=== PATIENT | male | born 1985 | race Caucasian/White ===

== ENCOUNTER → 2017-03-06 | Outpatient (CLI) | payer BC ==
[2016-01-28 03:30] VITALS: BP 106/69
--- NOTE | 2017-03-06 12:58 | RAD ---
APPROVED REPORT Test Type: Exercise Stress Nurse/Tech: Mara Longoria R.N. Test Indications: dizziness, atypical chest pain Cardiac History: No known cardiac , smoker Medications: See Electronic Medical Record Medical History: See Electronic Medical Record Resting ECG: s. love Resting Heart Rate: 57 bpm Resting Blood Pressure: 109/61mmHg Pretest Chest Pain: No chest pain Nurse/Tech Notes S1S2, lungs sound clear Consent: The procedure was explained to the patient in lay terms. Informed consent was witnessed. Luis Angel eout was entered into [employer]. History and Stress Test performed by Mara Longoria R.N. Stress Symptoms No chest pain or symptoms. POST EXERCISE Reason for Termination: Reached target heart rate Target HR: 160 Max HR: 173 bpm Exercise duration: 11 min. min:sec, 4 Stage Max Blood Pressure: 142/73mmHg Blood Pressure response to exercise: Normal blood pressure response during stress. Chest Pain: No. Arrhythmia: No. ST Change: No. INTERPRETATION Stress EKG Conclusion: Baseline EKG showed sinus rhythm. No ischemic changes at peak stress. No arr hythmias. Imaging Protocol IMAGE PROTOCOL: Rest Tc-99m/stress Tc-99m 1 day Rest: Stress: Viability: Radiopharm.Tc99m TcdjlsftfWk19m Sestamibi [id number] 34mCi Duration 15min. 10min. Img Date 03/06/2017 03/06/2017 Inj-Img [id number]. 60min. Rest Admin Site:IV - Right AntecubitalAdministrator:RT Naga (R)(N) Stress Admin Site: IV - Right AntecubitalAdministrator: RT Naga (R)(N) STRESS DATA End Diast. Vol.98.0mlAv. Heart Rate68.0bpm End Syst. Vol.33.0mlCO Index BSA0.0L/min Myocardial Sjkg480.0gEject. Itrrnrit08.0% Stress Rates Pk. Fill Rate2.74EDV/secLVtime Pk. Fill 255.34msec Pk. Empty Rate3.84ESV/secLVtime Pk. Mhzqo980.14msec 08/13 Pk. Fill1.35EDV/sec Stress Scores Regional WT0.00Summed WT2.00 Regional WM0.00Summed WM7.00 Study quality was good. Left Ventricular size was Normal at Rest and Stress. Lung uptake was Normal. Left Ventricular ejection fraction is 66%. The rest and stress images show normal perfusion, normal contraction and thickening. LV Perf. Quant 17 Seg. SSS0.00 17 Seg. SRS2.00 17 Seg. SDS0.00 Stress Defect Extent (% LAD)0.00Rest Defect Extent (% LAD)0.00Rev. Defect Extent (% LAD)0.00 Stress Defect Extent (% LCX) 0.00Rest Defect Extent (% LCX)8.80Rev. Defect Extent (% LCX)0.00 Stress Defect Extent (% RCA)0.00Rest Defect Extent (% RCA)0.00Rev. Defect Extent (% RCA)0.00 Stress Defect Extent (% JUNE)0.00Rest Defect Extent (% JUNE)1.50Rev. Defect Extent (% JUNE)0.00 Conclusion 1. Treadmill exercise cardioisotope stress test did not show any evidence of ischemia or infarct. 2. Normal left ventricular systolic function with ejection fraction calculated at 66%. 3. Low risk for cardiac events.
--- NOTE | 2017-03-06 13:01 | CARD ---
APPROVED REPORT EXAM: Two-dimensional and M-mode echocardiogram with Doppler and color Doppler. Other Information Quality : GoodHR: 52bpm Rhythm : Bradycardia INDICATION Palpitations Dizziness and Vertigo Fatigue Atypical chest pain RISK FACTORS Chewing tobacco 2D DIMENSIONS RVDd2.3 (2.9-3.5cm)Left Atrium(2D)2.4 (1.6-4.0cm) IVSd0.7 (0.7-1.1cm)Aortic Root(2D)3.0 (2.0-3.7cm) LVDd4.1 (3.9-5.9cm)LVOT Diameter2.3 (1.8-2.4cm) PWd0.7 (0.7-1.1cm)LVDs2.9 (2.5-4.0cm) FS (%) 28.9 %SV41.6 ml LVEF(%)56.0 (>50%) Aortic Valve AoV Peak Milad.105.2cm/sAoV VTI23.1cm AO Peak GR.4.4mmHgLVOT Peak Milad.78.6cm/s AO Mean GR.2mmHgAVA (VMAX)3.00cm2 Mitral Valve MV E Aqqqhqrg71.2cm/sMV E Peak Gr.4mmHg MV DECEL [id number] A [place]07.5cm/s MV E Mean Gr.1mmHgE/A Ratio2.9 MV A Epfrxuci66ii Pulmonary Valve PV Peak Vuzreqhc28.3cm/s Tricuspid Valve TR P. Ndvwhkoz449ck/sTR Peak Gr.20mmHg Pulmonary Vein S1 Eukuyxwq62.5cm/sD2 Iotfjsam09.8cm/s PVa iobavygj76lchd LEFT VENTRICLE The left ventricle is normal size. There is normal left ventricular wall thickness. The left ventricu lar systolic function is normal. The Ejection Fraction is 55%. There is normal LV segmental wall brisa on. The left ventricular diastolic function and filling is normal for age. RIGHT VENTRICLE The right ventricle is normal size. There is normal right ventricular wall thickness. The right ventr icular systolic function is normal. ATRIA The left atrium size is normal. The right atrium size is normal. The interatrial septum is intact wit h no evidence for an atrial septal defect or patent foramen ovale as noted on 2-D or Doppler imaging. AORTIC VALVE The aortic valve is normal in structure and function. The aortic valve is trileaflet. Doppler and Col or Flow revealed no significant aortic regurgitation. There is no significant aortic valvular stenosi s. MITRAL VALVE The mitral valve is normal in structure and function. There is no evidence of mitral valve prolapse. There is no mitral valve stenosis. Doppler and Color Flow revealed no mitral valve regurgitation note d. TRICUSPID VALVE Doppler and Color Flow revealed mild tricuspid regurgitation. The pulmonary artery systolic pressure is estimated at 23 mmHg. There is no pulmonary hypertension. PULMONIC VALVE The pulmonary valve is not well visualized but appears to opens well. Doppler and Color Flow revealed mild pulmonic valvular regurgitation. There is no pulmonic valvular stenosis by spectral Doppler. GREAT VESSELS The aortic root is normal in size. The ascending aorta is normal in size. The pulmonary artery is nor mal. The IVC is normal in size and collapses >50% with inspiration. PERICARDIAL EFFUSION There is no evidence of significant pericardial effusion. Critical Notification Critical Value: No <Conclusion> The left ventricular systolic function is normal. The Ejection Fraction is 55%. There is normal LV segmental wall motion. Mild tricuspid regurgitation. The pulmonary artery systolic pressure is estimated at 23 mmHg. There is no evidence of significant pericardial effusion.
== END | disposition home or self-care (01) ==
LOC: NM 07:55
PROVIDERS: ATTEND Physician Assistant Medical
DX: I07.1 Rheumatic tricuspid insufficiency (principal); R42 Dizziness and giddiness; R07.89 Other chest pain; R53.83 Other fatigue
CPT/HCPCS: 78452; 93017; 93306; 96374; 96376; A9500

== ENCOUNTER 2017-12-27 21:42 | Emergency (ER) | payer BC ==
[2017-12-27 22:12] LABS: ADD MAN DIFF? NO
[2017-12-27 22:14] LABS: BASO # 0.1 x10^3/uL (0.0-0.2); BASO % 1 % (0-3); EOS # 0.1 x10^3/uL (0.0-0.7); EOS % 2 % (0-3); HEMATOCRIT 43.8 % (39.0-53.0); HEMOGLOBIN 15.6 g/dL (13.0-17.5); LYMPH # 2.7 x10^3/uL (1.0-4.8); LYMPH % 39 % (24-48); MEAN CORPUSCULAR HEMOGLOBIN 33 pg (25-35); MEAN CORPUSCULAR HGB CONC 36 g/dL (31-37); MEAN CORPUSCULAR VOLUME 92 fL (79-100); MONO # 0.6 x10^3/uL (0.0-1.1); MONO % 8 % (0-9); NEUT # 3.5 x10^3uL (1.8-7.7); NEUT % 50 % (31-73); PLATELET COUNT 152 x10^3/uL (140-400); RED BLOOD COUNT 4.76 x10^6/uL (4.30-5.70); RED CELL DISTRIBUTION WIDTH 13.4 % (11.5-14.5); WHITE BLOOD COUNT 6.9 x10^3/uL (4.0-11.0)
[2017-12-27] MEDS: IV NORMAL SALINE 1000ML BAG 1,000 ML IV (22:15)
[2017-12-27] MEDS: ASPIRIN 325 MG TABLET PO (22:15)
[2017-12-27 22:26] LABS: ANION GAP 6 (6-14); BLOOD UREA NITROGEN 12 mg/dL (8-26); BUN/CREATININE RATIO 11 (6-20); CALCIUM 8.5 mg/dL (8.5-10.1); CARBON DIOXIDE 31 mmol/L (21-32); CHLORIDE 104 mmol/L (98-107); CREATININE 1.1 mg/dL (0.7-1.3); GFR 77.6; GLUCOSE 101 mg/dL (70-99); POTASSIUM 3.8 mmol/L (3.5-5.1); SODIUM 141 mmol/L (136-145)
[2017-12-27 22:31] LABS: ALBUMIN 3.8 g/dL (3.4-5.0); ALBUMIN/GLOBULIN RATIO 1.1 (1.0-1.7); ALK PHOS 79 U/L (46-116); ALT (SGPT) 19 U/L (16-63); AST (SGOT) 20 U/L (15-37); CREATINE KINASE 110 U/L (39-308); MAGNESIUM 1.8 mg/dL (1.8-2.4); TOTAL BILIRUBIN 0.5 mg/dL (0.2-1.0); TOTAL PROTEIN 7.4 g/dL (6.4-8.2)
[2017-12-27 22:33] LABS: TROPONINI < 0.017 ng/mL (0.000-0.055)
[2017-12-27 22:37] LABS: BILIRUBIN,URINE NEGATIVE (NEG); CLARITY,URINE CLEAR; COLOR,URINE YELLOW; GLUCOSE,URINE NEGATIVE (NEG); INR 1.2 (0.8-1.1); NITRITE,URINE NEGATIVE (NEG); PROTEIN,URINE NEGATIVE (NEG-TRACE); PROTHROMBIN TIME PATIENT 15.1 SEC (11.7-14.0); UROBILINOGEN,URINE 0.2 mg/dL (0.2 mg/dL)
[2017-12-27 22:39] LABS: NT-PRO BNP 14 pg/mL (0-124); THYROID STIM HORMONE (TSH) 2.983 uIU/mL (0.358-3.74)
[2017-12-27 22:39] LABS: CKMB INDEX 0.8 % (0-4); CKMB MASS 0.9 ng/mL (0.0-3.6); CREATINE KINASE 112 U/L (39-308)
[2017-12-27 22:44] LABS: BARBITURATES NEG (NEG); BENZODIAZEPINES NEG (NEG); CANNABINOIDS NEG (NEG); COCAINE NEG (NEG); METHADONE NEG (NEG); OPIATES NEG (NEG); PHENCYCLIDINE NEG (NEG)
[2017-12-27 22:45] LABS: AMPHETAMINE/METHAMPHETAMINE NEG (NEG); ETHANOL, URINE NEG (NEG)
[2017-12-27 22:48] LABS: BACTERIA,URINE 0 /HPF (0-FEW); RBC,URINE 0 /HPF (0-2); WBC,URINE 0 /HPF (0-4)
== END 2017-12-28 00:02 | disposition home or self-care (01) ==
LOC: ER 12-28 00:02
DX: F41.9 Anxiety disorder, unspecified (principal); F17.220 Nicotine dependence, chewing tobacco, uncomplicated; Z79.82 Long term (current) use of aspirin
CPT/HCPCS: 36415; 71045; 80053; 80307; 81001; 82550; 82553; 83735; 83880; 84443; 84484; 85025; 85610; 93005; 99285-25

== ENCOUNTER 2018-10-04 14:26 | Emergency (ER) | payer BC ==
[~2018-10-04] VITALS: Ht 167.6 cm; Wt 59.0 kg
[2018-10-04 15:22] VITALS: BP 108/78
[2018-10-04] MEDS ORDERED: METH4TAB2 PO (15:44)
[2018-10-04] MEDS ORDERED: AZIT250T6 PO (15:45)
--- NOTE | 2018-10-04 15:45 | PHYS DOC ---
Past Medical History Past Medical History: Anxiety Past Surgical History: Appendectomy Alcohol Use: None Drug Use: None Adult General Chief Complaint Chief Complaint: COUGH HPI HPI Patient is a 33 year old male who presents with right ear muffled, cough, congestion. Patient states he was diagnosed as ago with influenza A. Patient states he refused Tamiflu so the doctor that diagnosed him with the flu gave him a pressure for an antibiotic and stated to get it filled if he was not getting better after week. Patient did not get the antibiotic filled. Review of Systems Review of Systems Constitutional: Denies fever or chills [] Eyes: Denies change in visual acuity, redness, or eye pain [] HENT: nasal congestion or denies sore throat. ears muffled. t [] Respiratory: cough or denies shortness of breath [] Cardiovascular: No additional information not addressed in HPI [] GI: Denies abdominal pain, nausea, vomiting, bloody stools or diarrhea [] : Denies dysuria or hematuria [] Musculoskeletal: Denies back pain or joint pain [] Integument: Denies rash or skin lesions [] Neurologic: Denies headache, focal weakness or sensory changes [] Endocrine: Denies polyuria or polydipsia [] All other systems were reviewed and found to be within normal limits, except as documented in this note. Allergies Allergies Allergies Coded Allergies Type Severity Reaction Last Updated Verified No Known Drug Allergies 01/05/15 No Physical Exam Physical Exam Constitutional: Well developed, well nourished, no acute distress, non-toxic appearance. [] HENT: Normocephalic, atraumatic, bilateral external ears normal, oropharynx moist, no oral exudates, nose normal. Throat red but no exudates or swelling. Bilateral tympanic membranes boggy. [] Eyes: PERRLA, EOMI, conjunctiva normal, no discharge. [] Neck: Normal range of motion, no tenderness, supple, no stridor. [] Cardiovascular:Heart rate regular rhythm, no murmur [] Lungs & Thorax: Bilateral breath sounds clear to auscultation [] Abdomen: Bowel sounds normal, soft, no tenderness, no masses, no pulsatile masses. [] Skin: Warm, dry, no erythema, no rash. [] Back: No tenderness, no CVA tenderness. [] Extremities: No tenderness, no cyanosis, no clubbing, ROM intact, no edema. [] Neurologic: Alert and oriented X 3, normal motor function, normal sensory function, no focal deficits noted. [] Psychologic: Affect normal, judgement normal, mood normal. [] Current Patient Data Vital Signs Vital Signs Date Time Temp Pulse Resp B/P (MAP) Pulse Ox O2 Delivery O2 Flow Rate FiO2 10/04/18 15:22 98.0 74 16 108/78 (88) Room Air 98.0 EKG EKG [] Radiology/Procedures Radiology/Procedures [] Course & Med Decision Making Course & Med Decision Making Patient is a 33 year old male who presents with right ear muffled, cough, congestion. Patient states he was diagnosed as ago with influenza A. Patient states he refused Tamiflu so the doctor that diagnosed him with the flu gave him a pressure for an antibiotic and stated to get it filled if he was not getting better after week. Patient did not get the antibiotic filled. Bilateral ears or boggy in color. Lungs are clear to auscultation all lobes. Patient does have nasal congestion that is yellow in color. Patient does have postnasal drip. Throat is reddened but there is no exudates or swelling. Heart rate regular. Vital signs within normal limits. Patient is offered a antibiotic again or Tamiflu and patient is refusing both again. Patient is told that I can give him a steroid Dosepak that might help his symptoms he can try taking over- the-counter medications. Patient agrees to this and is to follow-up with a primary care provider. Patient is still given a antibiotic prescription is told that he should get it filled. Skin pink warm and dry. Mucous members are moist. Vital Signs are within normal limits. Afebrile. Dragon Disclaimer Dragon Disclaimer This electronic medical record was generated, in whole or in part, using a voice recognition dictation system. Departure Departure Impression: Primary Impression: Cough Additional Impressions: Ear pain Nasal congestion Disposition: 01 HOME, SELF-CARE Condition: STABLE Referrals: NO PCP (PCP) Patient Instructions: Cough, Adult, General Headache Without Cause Additional Instructions: FOLLOW UP WITH PRIMARY CARE PROVIDER. TAKE MEDICATIONS PRESCRIBED. Scripts Azithromycin (AZITHROMYCIN TABLET) 250 Mg Tablet 1 PKG PO UD, #6 TAB Prov: VINCENTBRADFavian Paige [employer] 10/04/18 Methylprednisolone (MEDROL) 4 Mg Tab.ds.pk 1 PKG PO UD, #1 PKG Prov: JOSIE KAUR APRN 10/04/18 Problem Qualifiers Additional Impressions: Ear pain Laterality: right Qualified Codes: H92.01 - Otalgia, right ear JOSIE KAUR [employer] Oct 04, 2018 15:45
== END 2018-10-04 16:09 | disposition home or self-care (01) ==
LOC: ER 14:26
DX: H92.01 Otalgia, right ear (principal); R05 Cough; R09.81 Nasal congestion; F41.9 Anxiety disorder, unspecified; Z90.89 Acquired absence of other organs
CPT/HCPCS: 99283

== ENCOUNTER 2019-02-12 00:29 | Emergency (ER) | payer BC ==
[~2019-02-12] VITALS: Ht 167.6 cm; Wt 59.0 kg
[~2019-02-12 00:29] MED LIST: AZIT250T6 PO; METH4TAB2 PO
[2019-02-12] MEDS ORDERED: ASPIRIN CHEWABLE 81 MG TABLET. PO ONE (01:00)
[2019-02-12 01:21] LABS: BASO # 0.1 x10^3/uL (0.0-0.2); BASO % 1 % (0-3); EOS # 0.2 x10^3/uL (0.0-0.7); EOS % 2 % (0-3); HEMATOCRIT 46.3 % (39.0-53.0); LYMPH # 2.4 x10^3/uL (1.0-4.8); LYMPH % 31 % (24-48); MEAN CORPUSCULAR HEMOGLOBIN 32 pg (25-35); MEAN CORPUSCULAR HGB CONC 35 g/dL (31-37); MEAN CORPUSCULAR VOLUME 92 fL (79-100); MONO # 0.6 x10^3/uL (0.0-1.1); MONO % 8 % (0-9); NEUT # 4.3 x10^3uL (1.8-7.7); NEUT % 58 % (31-73); PLATELET COUNT 157 x10^3/uL (140-400); RED BLOOD COUNT 5.04 x10^6/uL (4.30-5.70); RED CELL DISTRIBUTION WIDTH 13.2 % (11.5-14.5); WHITE BLOOD COUNT 7.5 x10^3/uL (4.0-11.0)
[2019-02-12 01:27] LABS: CALCIUM 9.3 mg/dL (8.5-10.1); CREATININE 0.9 mg/dL (0.7-1.3); GFR 97.2; POTASSIUM 3.5 mmol/L (3.5-5.1)
[2019-02-12 01:33] LABS: ALBUMIN/GLOBULIN RATIO 1.1 (1.0-1.7); TOTAL BILIRUBIN 0.5 mg/dL (0.2-1.0); TOTAL PROTEIN 7.5 g/dL (6.4-8.2)
[2019-02-12 01:36] VITALS: BP 110/69
--- NOTE | 2019-02-12 03:19 | PHYS DOC ---
Past Medical History Past Medical History: Anxiety Past Surgical History: Appendectomy Alcohol Use: None Drug Use: None Adult General Chief Complaint Chief Complaint: CHEST PAIN HPI HPI Patient is a 33 year old male presented chief complaint of multiple complaints primary complaint is that of some chest discomfort, feels sharp or dull as well in the center of the left chest he also feels some pain in his right neck he says his left forearm also hurts he says he can look down and see his heart pulsing through his skin of his left arm he is worried about that in addition he has bilateral leg pain feels like cramping. Review of Systems Review of Systems Constitutional: Denies fever or chills [] Eyes: Denies change in visual acuity, redness, or eye pain [] HENT: Denies nasal congestion or sore throat [] Respiratory: Denies cough or shortness of breath [] Cardiovascular: No additional information not addressed in HPI [] GI: Denies abdominal pain, nausea, vomiting, bloody stools or diarrhea [] : Denies dysuria or hematuria [] Musculoskeletal: Denies back pain or joint pain [] All other systems were reviewed and found to be within normal limits, except as documented in this note. Current Medications Current Medications Current Medications Medications (Trade) Dose Ordered Sig/Андрей Start Time Stop Time Status Last Admin Dose Admin Aspirin (Children'S Aspirin) 324 mg 1X ONCE 02/12/19 01:00 02/12/19 01:01 DC 02/12/19 01:07 324 MG Allergies Allergies Allergies Coded Allergies Type Severity Reaction Last Updated Verified No Known Drug Allergies 01/05/15 No Physical Exam Physical Exam Constitutional: Well developed, well nourished, no acute distress, non-toxic appearance. [] HENT: Normocephalic, atraumatic, bilateral external ears normal, oropharynx moist, no oral exudates, nose normal. [] Eyes: PERRLA, EOMI, conjunctiva normal, no discharge. [] Neck: Normal range of motion, no tenderness, supple, no stridor. [] Cardiovascular:Heart rate regular rhythm, no murmur [] Lungs & Thorax: Bilateral breath sounds clear to auscultation [] Abdomen: Bowel sounds normal, soft, no tenderness, no masses, no pulsatile masses. [] Skin: Warm, dry, no erythema, no rash. [] Back: No tenderness, no CVA tenderness. [] Extremities: No tenderness, no cyanosis, no clubbing, ROM intact, no edema. [] Neurologic: Alert and oriented X 3, normal motor function, normal sensory function, no focal deficits noted. [] Psychologic: Affect normal, judgement normal, mood normal. [] Current Patient Data Vital Signs Vital Signs Date Time Temp Pulse Resp B/P (MAP) Pulse Ox O2 Delivery O2 Flow Rate FiO2 02/12/19 01:36 50 14 110/69 (83) 97 Room Air Lab Values Laboratory Tests Test 02/12/19 01:05 White Blood Count 7.5 x10^3/uL (4.0-11.0) Red Blood Count 5.04 x10^6/uL (4.30-5.70) Hemoglobin 16.0 g/dL (13.0-17.5) Hematocrit 46.3 % (39.0-53.0) Mean Corpuscular Volume 92 fL (79-100) Mean Corpuscular Hemoglobin 32 pg (25-35) Mean Corpuscular Hemoglobin Concent 35 g/dL (31-37) Red Cell Distribution Width 13.2 % (11.5-14.5) Platelet Count 157 x10^3/uL (140-400) Neutrophils (%) (Auto) 58 % (31-73) Lymphocytes (%) (Auto) 31 % (24-48) Monocytes (%) (Auto) 8 % (0-9) Eosinophils (%) (Auto) 2 % (0-3) Basophils (%) (Auto) 1 % (0-3) Neutrophils # (Auto) 4.3 x10^3uL (1.8-7.7) Lymphocytes # (Auto) 2.4 x10^3/uL (1.0-4.8) Monocytes # (Auto) 0.6 x10^3/uL (0.0-1.1) Eosinophils # (Auto) 0.2 x10^3/uL (0.0-0.7) Basophils # (Auto) 0.1 x10^3/uL (0.0-0.2) Sodium Level 141 mmol/L (136-145) Potassium Level 3.5 mmol/L (3.5-5.1) Chloride Level 104 mmol/L (98-107) Carbon Dioxide Level 30 mmol/L (21-32) Anion Gap 7 (6-14) Blood Urea Nitrogen 11 mg/dL (8-26) Creatinine 0.9 mg/dL (0.7-1.3) Estimated GFR (Cockcroft-Gault) 97.2 BUN/Creatinine Ratio 12 (6-20) Glucose Level 94 mg/dL (70-99) Calcium Level 9.3 mg/dL (8.5-10.1) Total Bilirubin 0.5 mg/dL (0.2-1.0) Aspartate Amino Transferase (AST) 20 U/L (15-37) Alanine Aminotransferase (ALT) 20 U/L (16-63) Alkaline Phosphatase 68 U/L (46-116) Troponin I Quantitative < 0.017 ng/mL (0.000-0.055) Total Protein 7.5 g/dL (6.4-8.2) Albumin 4.0 g/dL (3.4-5.0) Albumin/Globulin Ratio 1.1 (1.0-1.7) Laboratory Tests 02/12/19 01:05 Laboratory Tests 02/12/19 01:05 EKG EKG EKG shows a normal sinus rhythm rate of 59 incomplete right bundle-branch block but this could be lead placement otherwise no STEMI no ST elevation was identified[] Radiology/Procedures Radiology/Procedures [] Impressions: Chest x-ray my read negative acute Course & Med Decision Making Course & Med Decision Making Pertinent Labs and Imaging studies reviewed. (See chart for details) []33-year-old male with history of anxiety multiple previous ER presentations also history of atypical chest pain in the past presenting with some sort of atypical sounding chest pain with a negative troponin essentially normal EKG and multiple other complaints of some neck pain some pulsating feeling of his left arm he is concerned that he can see his heart beating through his forearm despite my objective evidence of a normal forearm examination In total I think the patient is suffering from anxiety I reassured them as best I could his vital signs are normal think is stable for discharge Dragon Disclaimer Dragon Disclaimer This electronic medical record was generated, in whole or in part, using a voice recognition dictation system. Departure Departure Impression: Primary Impression: Nonspecific chest pain Disposition: HOME, SELF-CARE Condition: STABLE Referrals: NO PCP (PCP) Patient Instructions: Chest Pain (Nonspecific)-Brief TOSIN CHARLES MD Feb 12, 2019 03:19
--- NOTE | 2019-02-12 04:23 | RAD ---
EXAM: AP View of the chest DATE: 02/12/2019 12:40 AM INDICATION: Chest pain COMPARISON: No Prior FINDINGS: The heart is not enlarged. Mediastinal and hilar contours are normal. No focal parenchymal airspace opacity. No pleural effusion or pneumothorax. IMPRESSION: 1. No radiographic evidence for acute cardiopulmonary process. Electronically signed by: Kevyn Peñaloza MD (02/12/2019 4:20 AM) [facility]
--- NOTE | 2019-02-12 07:35 | EKG ---
[facility] [address] [place] [address] Test Date: 2019-02-12 Test Time: 00:40:29 Pat Name: MIKA SANDHU Department: Room: Gender: M [employer] Manager: DOMO : 1985 Requested By: TOSIN CHARLES Order Number: [id number] Reading MD: Measurements Intervals [place] Rate: 59 P: 64 TN: 138 QRS: 79 QRSD: 98 T: 55 QT: 350 QTc: 350 Interpretive Statements SINUS RHYTHM INCOMPLETE RIGHT BUNDLE BRANCH BLOCK OTHERWISE NORMAL ECG RI6.01 No previous ECG available for comparison
== END 2019-02-12 01:49 | disposition home or self-care (01) ==
LOC: ER 00:29
DX: R07.89 Other chest pain (principal); F41.9 Anxiety disorder, unspecified; M79.604 Pain in right leg; M79.605 Pain in left leg; Z90.89 Acquired absence of other organs
CPT/HCPCS: 36415; 71045; 80053; 84484; 85025; 93005; 99285-25

== ENCOUNTER 2019-04-24 22:32 | Emergency (ER) | payer BC ==
[~2019-04-24] VITALS: Ht 167.6 cm; Wt 59.0 kg
[2019-04-24 23:02] LABS: BILIRUBIN,URINE NEGATIVE (NEG); CLARITY,URINE CLEAR; COLOR,URINE YELLOW; NITRITE,URINE NEGATIVE (NEG); PH,URINE 6.5; PROTEIN,URINE NEGATIVE (NEG-TRACE); UROBILINOGEN,URINE 0.2 mg/dL (0.2 mg/dL)
[2019-04-24 23:02] LABS: BASO # 0.1 x10^3/uL (0.0-0.2); BASO % 1 % (0-3); EOS # 0.2 x10^3/uL (0.0-0.7); EOS % 4 % (0-3); HEMATOCRIT 44.1 % (39.0-53.0); HEMOGLOBIN 15.5 g/dL (13.0-17.5); LYMPH # 2.2 x10^3/uL (1.0-4.8); LYMPH % 39 % (24-48); MEAN CORPUSCULAR HEMOGLOBIN 33 pg (25-35); MEAN CORPUSCULAR HGB CONC 35 g/dL (31-37); MEAN CORPUSCULAR VOLUME 92 fL (79-100); MONO # 0.5 x10^3/uL (0.0-1.1); MONO % 10 % (0-9); NEUT # 2.6 x10^3/uL (1.8-7.7); NEUT % 46 % (31-73); PLATELET COUNT 167 x10^3/uL (140-400); RED BLOOD COUNT 4.77 x10^6/uL (4.30-5.70); RED CELL DISTRIBUTION WIDTH 13.2 % (11.5-14.5); WHITE BLOOD COUNT 5.5 x10^3/uL (4.0-11.0)
[2019-04-24 23:08] LABS: BARBITURATES NEG (NEG); BENZODIAZEPINES NEG (NEG); CANNABINOIDS NEG (NEG); COCAINE NEG (NEG); METHADONE NEG (NEG); OPIATES NEG (NEG); PHENCYCLIDINE NEG (NEG)
[2019-04-24 23:09] LABS: AMPHETAMINE/METHAMPHETAMINE NEG (NEG)
[2019-04-24 23:14] LABS: BACTERIA,URINE 0 /HPF (0-FEW); RBC,URINE OCC /HPF (0-2); WBC,URINE OCC /HPF (0-4)
[2019-04-24 23:15] LABS: AMORPHOUS SEDIMENT,UR PRESENT /HPF; SQUAMOUS EPITHELIAL CELL,UR OCC /LPF
[2019-04-24 23:19] LABS: CALCIUM 8.7 mg/dL (8.5-10.1); CREATININE 0.9 mg/dL (0.7-1.3); GFR 97.2; POTASSIUM 3.7 mmol/L (3.5-5.1)
[2019-04-24 23:23] LABS: ALBUMIN 3.7 g/dL (3.4-5.0); MAGNESIUM 1.9 mg/dL (1.8-2.4); TOTAL BILIRUBIN 0.6 mg/dL (0.2-1.0); TOTAL PROTEIN 7.4 g/dL (6.4-8.2)
[2019-04-24 23:30] LABS: CREATINE KINASE 71 U/L (39-308)
[2019-04-24] MEDS ORDERED: ASPIRIN 325 MG TABLET PO ONE (23:30)
--- NOTE | 2019-04-24 23:43 | RAD ---
Single view chest dated 04/24/2019: Comparison made to 02/12/2019 Clinical Indication: Chest pain. Findings: Single upright portable exam of the chest was performed. Heart size and mediastinal contours are within normal limits given technique. The lungs are clear without evidence of focal consolidation. Vascular interstitium is within normal limits. Impression:: No acute radiographic abnormality. Electronically signed by: Michael Hauser MD (04/24/2019 11:40 PM) [facility]
[2019-04-25 00:25] VITALS: BP 100/62
--- NOTE | 2019-04-25 00:48 | PHYS DOC ---
Past Medical History Past Medical History: Anxiety (KAREN MASTERSON APRN) Past Surgical History: No Surgical History, Appendectomy (KAREN MASTERSON APRN) Additional Information: CHEWS TOBACCO Alcohol Use: None Drug Use: None (KAREN MASTERSON APRN) Attending Signature I have participated in the care of this patient and I have reviewed and agree with all pertinent clinical information above including history, exam, and recommendations. (MARIE MEDEIROS MD) Adult General Chief Complaint Chief Complaint: CHEST PAIN-CARDIAC NATURE HPI HPI Patient is a 33 year old male with history of anxiety who presents to the ED today complaining of 6 out of 10 left-sided chest pain intermittently for 2 weeks. Patient states he was seen in the ED for this pain, had a workup which was negative and was sent home. He states has continued to have the pain. He is also complaining of numbness throughout his entire left side from the head to the toes. He states the numbness has been going on for 2 weeks. Patient denies any exacerbating or relieving factors to his chest pain. He states the pain radiates to the left thumb. (KAREN MASTERSON APRN) Review of Systems Review of Systems Constitutional: Denies fever or chills [] Eyes: Denies change in visual acuity, redness, or eye pain [] HENT: Denies nasal congestion or sore throat [] Respiratory: Denies cough or shortness of breath [] Cardiovascular: Reports left-sided chest pain GI: Denies abdominal pain, nausea, vomiting, bloody stools or diarrhea [] : Denies dysuria or hematuria [] Musculoskeletal: Denies back pain or joint pain [] Integument: Denies rash or skin lesions [] Neurologic: Reports numbness to the entire left side. Denies headache, focal weakness or sensory changes [] All other systems were reviewed and found to be within normal limits, except as documented in this note. (KAREN MASTERSON APRN) Current Medications Current Medications Current Medications Medications (Trade) Dose Ordered Sig/Андерй Start Time Stop Time Status Last Admin Dose Admin Aspirin (Shoshana Aspirin) 325 mg 1X ONCE 04/24/19 23:30 04/24/19 23:31 Cancel (MARIE MEDEIROS MD) Allergies Allergies Allergies Coded Allergies Type Severity Reaction Last Updated Verified No Known Drug Allergies 01/05/15 No (MARIE MEDEIROS MD) Physical Exam Physical Exam Constitutional: Well developed, well nourished, no acute distress, non-toxic appearance. [] HENT: Normocephalic, atraumatic, bilateral external ears normal, oropharynx moist, no oral exudates, nose normal. [] Eyes: PERRLA, EOMI, conjunctiva normal, no discharge. [] Neck: Normal range of motion, no tenderness, supple, no stridor. [] Cardiovascular:Heart rate regular rhythm, no murmur [] Lungs & Thorax: Bilateral breath sounds clear to auscultation [] Abdomen: Bowel sounds normal, soft, no tenderness, no masses, no pulsatile masses. [] Skin: Warm, dry, no erythema, no rash. [] Back: No tenderness, no CVA tenderness. [] Extremities: No tenderness, no cyanosis, no clubbing, ROM intact, no edema. [] Neurologic: Alert and oriented X 3, normal motor function, normal sensory function, no focal deficits noted. [] Psychologic: Affect normal, judgement normal, mood normal. [] (KAREN MASTERSON APRN) Current Patient Data Vital Signs Vital Signs Date Time Temp Pulse Resp B/P (MAP) Pulse Ox O2 Delivery O2 Flow Rate FiO2 04/25/19 00:25 52 18 100/62 (75) 97 Room Air 04/24/19 22:40 98.1 98.1 (MARIE MEDEIROS MD) Lab Values Laboratory Tests Test 04/24/19 22:39 04/24/19 22:50 Urine Collection Type Unknown Urine Color Yellow Urine Clarity Clear Urine pH 6.5 Urine Specific [place] 1.020 Urine Protein Negative mg/dL (NEG-TRACE) Urine Glucose (UA) Negative mg/dL (NEG) Urine Ketones (Stick) Negative mg/dL (NEG) Urine Blood Negative (NEG) Urine Nitrite Negative (NEG) Urine Bilirubin Negative (NEG) Urine Urobilinogen Dipstick 0.2 mg/dL (0.2 mg/dL) Urine Leukocyte Esterase Negative (NEG) Urine RBC Occ /HPF (0-2) Urine WBC Occ /HPF (0-4) Urine Squamous Epithelial Cells Occ /LPF Urine Amorphous Sediment Present /HPF Urine Bacteria 0 /HPF (0-FEW) Urine Mucus Marked /LPF Urine Opiates Screen Neg (NEG) Urine Methadone Screen Neg (NEG) Urine Barbiturates Neg (NEG) Urine Phencyclidine Screen Neg (NEG) Urine Amphetamine/Methamphetamine Neg (NEG) Urine Benzodiazepines Screen Neg (NEG) Urine Cocaine Screen Neg (NEG) Urine Cannabinoids Screen Neg (NEG) Urine Ethyl Alcohol Neg (NEG) White Blood Count 5.5 x10^3/uL (4.0-11.0) Red Blood Count 4.77 x10^6/uL (4.30-5.70) Hemoglobin 15.5 g/dL (13.0-17.5) Hematocrit 44.1 % (39.0-53.0) Mean Corpuscular Volume 92 fL (79-100) Mean Corpuscular Hemoglobin 33 pg (25-35) Mean Corpuscular Hemoglobin Concent 35 g/dL (31-37) Red Cell Distribution Width 13.2 % (11.5-14.5) Platelet Count 167 x10^3/uL (140-400) Neutrophils (%) (Auto) 46 % (31-73) Lymphocytes (%) (Auto) 39 % (24-48) Monocytes (%) (Auto) 10 % (0-9) H Eosinophils (%) (Auto) 4 % (0-3) H Basophils (%) (Auto) 1 % (0-3) Neutrophils # (Auto) 2.6 x10^3/uL (1.8-7.7) Lymphocytes # (Auto) 2.2 x10^3/uL (1.0-4.8) Monocytes # (Auto) 0.5 x10^3/uL (0.0-1.1) Eosinophils # (Auto) 0.2 x10^3/uL (0.0-0.7) Basophils # (Auto) 0.1 x10^3/uL (0.0-0.2) Sodium Level 144 mmol/L (136-145) Potassium Level 3.7 mmol/L (3.5-5.1) Chloride Level 105 mmol/L (98-107) Carbon Dioxide Level 33 mmol/L (21-32) H Anion Gap 6 (6-14) Blood Urea Nitrogen 9 mg/dL (8-26) Creatinine 0.9 mg/dL (0.7-1.3) Estimated GFR (Cockcroft-Gault) 97.2 BUN/Creatinine Ratio 10 (6-20) Glucose Level 107 mg/dL (70-99) H Calcium Level 8.7 mg/dL (8.5-10.1) Magnesium Level 1.9 mg/dL (1.8-2.4) Total Bilirubin 0.6 mg/dL (0.2-1.0) Aspartate Amino Transferase (AST) 17 U/L (15-37) Alanine Aminotransferase (ALT) 15 U/L (16-63) L Alkaline Phosphatase 70 U/L (46-116) Creatine Kinase 71 U/L (39-308) Creatine Kinase MB (Mass) 0.6 ng/mL (0.0-3.6) Creatine Kinase MB Relative Index % (0-4) Troponin I Quantitative < 0.017 ng/mL (0.000-0.055) YL-Ncf-F-Type Natriuretic Peptide 42 pg/mL (0-124) Total Protein 7.4 g/dL (6.4-8.2) Albumin 3.7 g/dL (3.4-5.0) Albumin/Globulin Ratio 1.0 (1.0-1.7) Thyroid Stimulating Hormone (TSH) 1.794 uIU/mL (0.358-3.74) Laboratory Tests 04/24/19 22:50 Laboratory Tests 04/24/19 22:50 (MARIE MEDEIROS MD) EKG EKG [address] Medeiros sinus rhythm HR 66 no STEMI[] (KAREN MASTERSON APRN) Radiology/Procedures Radiology/Procedures []PROCEDURE: CT HEAD WO CONTRAST CT head without contrast PQRS statement: CT scans at this facility use dose reduction including either automated exposure control, iterative reconstructions, and /or weight based radiation dosing via mA and kV modification when appropriate to reduce radiation dose to as low as reasonably achievable. HISTORY: Left-sided numbness, tingling and weakness. TECHNIQUE: Noncontrast CT imaging of the head was acquired. FINDINGS: No intracranial hemorrhage, mass, hydrocephalus, extra-axial fluid collections or infarction. No acute ischemic change. Imaged orbits, mastoids and bones are unremarkable. IMPRESSION: No acute abnormality. Electronically signed by: Jaqui Keith MD (04/25/2019 12:46 AM) [facility] DICTATED and SIGNED BY: JAQUI KEIHT MD DATE: 04/25/19 0046 (KAREN MASTERSON APRN) Course & Med Decision Making Course & Med Decision Making Pertinent Labs and Imaging studies reviewed. (See chart for details) This is a 33-year-old male patient well known to this ED presenting today complaining of chest pain that began 2 weeks ago, also complaining of left-sided numbness. Patient is well known to this ED for chest pain. He has been worked up multiple times with no acute findings. His cardiac workup in the ED today is negative. His heart score is 0. Discharged to home. Follow-up with printed circuit boards router as well as PCP. (KAREN MASTERSON APRN) Dragon Disclaimer Dragon Disclaimer This electronic medical record was generated, in whole or in part, using a voice recognition dictation system. (KAREN MASTERSON APRN) The HEART Score for CP Pts HEART Score for Chest Pain: HEART Score for Chest Pain Response (Comments) Value History Slighlty/Non-Suspicious 0 ECG Normal 0 Age < 45 0 Risk Factors No Risk Factors 0 Troponin < Normal Limit 0 Total 0 Risk Factors: Risk Factors: DM, Current or recent (<one month) smoker, HTN, HLP, family history of CAD, obesity. Risk Scores: Score 0 - 3: 2.5% MACE over next 6 weeks - Discharge Home Score 4 - 6: 20.3% MACE over next 6 weeks - Admit for Clinical Observation Score 7 - 10: 72.7% MACE over next 6 weeks - Early Invasive Strategies (KAREN MASTERSON APRN) Departure Departure Impression: Primary Impression: Nonspecific chest pain Disposition: HOME, SELF-CARE Condition: STABLE Referrals: NO PCP (PCP) HARSHA PENA MD follow up in one week Patient Instructions: Chest Pain (Nonspecific), [id number] Additional Instructions: You were was seen for chest pain. Your cardiac workup is negative. Follow-up with your own doctor in the course of next week or the provided printed circuit boards router. KAREN MASTERSON APRN Apr 25, 2019 00:48 MARIE MEDEIROS MD Apr 25, 2019 04:30
--- NOTE | 2019-04-25 07:53 | EKG ---
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
== END 2019-04-25 01:05 | disposition home or self-care (01) ==
LOC: ER 22:32
DX: R07.89 Other chest pain (principal); F41.9 Anxiety disorder, unspecified; Z72.0 Tobacco use; R20.0 Anesthesia of skin; Z90.89 Acquired absence of other organs
CPT/HCPCS: 36415; 70450; 71045; 80053; 80307; 81001; 82553; 83735; 83880; 84443; 84484; 85025; 93005; 99285-25

== ENCOUNTER 2019-11-25 11:20 | Emergency (ER) | payer BC ==
[~2019-11-25] VITALS: Ht 160 cm; Wt 56.0 kg
[2019-11-25] MEDS ORDERED: ASPIRIN 325 MG TABLET PO ONE (11:30)
--- NOTE | 2019-11-25 11:54 | RAD ---
EXAM: Chest, single view. HISTORY: Chest pain. COMPARISON: 04/24/2019 FINDINGS: A frontal view of the chest is obtained. There is no infiltrate, pleural effusion or pneumothorax. The heart is normal in size. IMPRESSION: No acute pulmonary finding. Electronically signed by: Rebecca Kelly MD (11/25/2019 11:51 AM) [facility]
[2019-11-25 12:02] LABS: BASO % 0 % (0-3); EOS % 1 % (0-3); HEMATOCRIT 45.5 % (39.0-53.0); HEMOGLOBIN 15.7 g/dL (13.0-17.5); LYMPH % 17 % (24-48); MEAN CORPUSCULAR HEMOGLOBIN 32 pg (25-35); MEAN CORPUSCULAR HGB CONC 35 g/dL (31-37); MEAN CORPUSCULAR VOLUME 92 fL (79-100); MONO # 0.4 x10^3/uL (0.0-1.1); MONO % 7 % (0-9); NEUT # 4.6 x10^3/uL (1.8-7.7); NEUT % 75 % (31-73); PLATELET COUNT 154 x10^3/uL (140-400); RED BLOOD COUNT 4.92 x10^6/uL (4.30-5.70); RED CELL DISTRIBUTION WIDTH 13.2 % (11.5-14.5); WHITE BLOOD COUNT 6.2 x10^3/uL (4.0-11.0)
--- NOTE | 2019-11-25 12:02 | PHYS DOC ---
Past Medical History Past Medical History: No Pertinent History, Anxiety Past Surgical History: No Surgical History, Appendectomy Smoking Status: Never Smoker Alcohol Use: None Drug Use: None General Adult EDM: Chief Complaint: CHEST PAIN HPI: HPI: Patient is a 34 year old male with a history of anxiety who presents to the ED today complaining of a mild intermittent left-sided chest pain that radiated to his left arm with shortness of breath that began a couple minutes prior to coming to the ED. Patient states the pain resolved right away. He has no pain right now but wanted to be checked out. He has history of multiple visits in the ED for chest pain and negative work-ups. Review of Systems: Review of Systems: Constitutional: Denies fever or chills. [] Eyes: Denies change in visual acuity. [] HENT: Denies nasal congestion or sore throat. [] Respiratory: Denies cough or shortness of breath. [] Cardiovascular: Reports chest pain GI: Denies abdominal pain, nausea, vomiting, bloody stools or diarrhea. [] : Denies dysuria. [] Musculoskeletal: Denies back pain or joint pain. [] Integument: Denies rash. [] Neurologic: Denies headache, focal weakness or sensory changes. [] Endocrine: Denies polyuria or polydipsia. [] Lymphatic: Denies swollen glands. [] Psychiatric: Denies depression or anxiety. [] Heart Score: HEART Score for Chest Pain: HEART Score for Chest Pain Response (Comments) Value History Slighlty/Non-Suspicious 0 ECG Normal 0 Age < 45 0 Risk Factors No Risk Factors 0 Troponin < Normal Limit 0 Total 0 Risk Factors: Risk Factors: DM, Current or recent (<one month) smoker, HTN, HLP, family history of CAD, obesity. Risk Scores: Score 0 - 3: 2.5% MACE over next 6 weeks - Discharge Home Score 4 - 6: 20.3% MACE over next 6 weeks - Admit for Clinical Observation Score 7 - 10: 72.7% MACE over next 6 weeks - Early Invasive Strategies Current Medications: Current Medications Medications (Trade) Dose Ordered Sig/Андрей Start Time Stop Time Status Last Admin Dose Admin Aspirin (Shoshana Aspirin) 325 mg 1X ONCE 11/25/19 11:30 11/25/19 11:31 DC 11/25/19 11:53 325 MG Allergies: Allergies: Allergies Coded Allergies Type Severity Reaction Last Updated Verified No Known Drug Allergies 01/05/15 No Physical Exam: PE: Constitutional: Well developed, well nourished, no acute distress, non-toxic appearance. [] HENT: Normocephalic, atraumatic, bilateral external ears normal, oropharynx moist, no oral exudates, nose normal. [] Eyes: PERRLA, EOMI, conjunctiva normal, no discharge. [] Neck: Normal range of motion, no tenderness, supple, no stridor. [] Cardiovascular:Heart rate regular rhythm, no murmur [] Lungs & Thorax: Bilateral breath sounds clear to auscultation [] Abdomen: Bowel sounds normal, soft, no tenderness, no masses, no pulsatile masses. [] Skin: Warm, dry, no erythema, no rash. [] Back: No tenderness, no CVA tenderness. [] Extremities: No tenderness, no cyanosis, no clubbing, ROM intact, no edema. [] Neurologic: Alert and oriented X 3, normal motor function, normal sensory function, no focal deficits noted. [] Psychologic: Affect normal, judgement normal, mood normal. [] Current Patient Data: Vital Signs: Vital Signs Date Time Temp Pulse Resp B/P (MAP) Pulse Ox O2 Delivery O2 Flow Rate FiO2 11/25/19 11:29 98.7 79 18 110/73 (85) 98 Room Air 98.7 EKG: EKG: [] Radiology/Procedures: Radiology/Procedures: []PROCEDURE: PORTABLE CHEST 1V EXAM: Chest, single view. HISTORY: Chest pain. COMPARISON: 04/24/2019 FINDINGS: A frontal view of the chest is obtained. There is no infiltrate, pleural effusion or pneumothorax. The heart is normal in size. IMPRESSION: No acute pulmonary finding. Electronically signed by: Rebecca Kelly MD (11/25/2019 11:51 AM) [facility] DICTATED and SIGNED BY: REBECCA KELLY MD DATE: 11/25/19 1153 Course & Med Decision Making: Course & Med Decision Making Pertinent Labs and Imaging studies reviewed. (See chart for details) This is a 34-year-old male patient presenting to the ED today with an episode of chest pain that began prior to coming to the ED. He has no pain right now in the ED. He has been seen in the ED multiple times for chest pain work-ups which are usually negative. Heart score 0, labs are negative. Refused to give us urine. D/c to home. f/u with Cardiology and PCP Wally Disclaimer: Wally Disclaimer: This electronic medical record was generated, in whole or in part, using a voice recognition dictation system. Departure Departure Impression: Primary Impression: Nonspecific chest pain Disposition: HOME, SELF-CARE Condition: STABLE Referrals: NO PCP (PCP) NANO GILBERT MD follow up in 1 week Patient Instructions: Chest Pain (Nonspecific), [id number] Additional Instructions: You were evaluated in the emergency room for chest pain, your cardiac work-up is negative, follow-up with your primary care doctor and dope edger in the next 7 days. KAREN MASTERSON APRN Nov 25, 2019 12:02
--- NOTE | 2019-11-25 12:04 | EKG ---
[facility] [address] [place] [address] Test Date: 2019-11-25 Test Time: 11:35:01 Pat Name: MIKA SANDHU Department: Room: Gender: M Patient Svcs Mgr: : 1985 Requested By: KAREN MASTERSON Order Number: [id number] Reading MD: Reinaldo Marques Measurements Intervals [place] Rate: 69 P: 64 ID: 128 QRS: 79 QRSD: 100 T: 71 QT: 338 QTc: 367 Interpretive Statements SINUS RHYTHM INCOMPLETE RIGHT BUNDLE BRANCH BLOCK Electronically Signed On 11-26-2019 10:21:06 CDT by Reinaldo Marques
[2019-11-25 12:14] LABS: CALCIUM 8.9 mg/dL (8.5-10.1); CREATININE 0.8 mg/dL (0.7-1.3); GFR 110.7; POTASSIUM 3.8 mmol/L (3.5-5.1)
[2019-11-25 12:20] LABS: ALBUMIN 3.9 g/dL (3.4-5.0); ALBUMIN/GLOBULIN RATIO 1.2 (1.0-1.7); MAGNESIUM 1.9 mg/dL (1.8-2.4); TOTAL BILIRUBIN 0.7 mg/dL (0.2-1.0); TOTAL PROTEIN 7.2 g/dL (6.4-8.2)
[2019-11-25 13:30] VITALS: BP 105/68
== END 2019-11-25 13:33 | disposition home or self-care (01) ==
LOC: ER 11:20
DX: R07.89 Other chest pain (principal); M79.602 Pain in left arm; R06.02 Shortness of breath
CPT/HCPCS: 36415; 71045; 80053; 82553; 83735; 83880; 84443; 84484; 85025; 93005; 99285; G0480

== ENCOUNTER 2021-07-14 00:23 | Emergency (ER) | payer BC ==
[~2021-07-14] VITALS: Ht 167.6 cm; Wt 59.1 kg
--- NOTE | 2021-07-14 00:45 | PHYS DOC ---
Past Medical History Past Medical History: No Pertinent History, Anxiety (REY WASHINGTON APRN) Past Surgical History: No Surgical History, Appendectomy (REY WASHINGTON APRN) Smoking Status: Never Smoker Alcohol Use: None Drug Use: None (REY WASHINGTON APRN) General Adult EDM: Chief Complaint: CHEST PAIN HPI: HPI: Patient is a 35-year-old male who presents to the emergency department today for chest pain. Patient reports that he is experiencing midsternal chest pain that radiates to his back that started 1 hour prior to arrival. He rates the pain 2 out of 10. Patient reports that he has had this chest pain previously and been evaluated for it. Based off of his records, it appears that he has been seen multiple times for anxiety related chest pain. Patient reports that this pain that he is experiencing feels like the pain associated with his panic attacks. He reports intermittent lightheadedness. Patient was diagnosed with COVID-19 on July 02. He reports resolution in his Covid related symptoms other than loss of taste and smell. He denies shortness of breath, cough, fever, nausea, vomiting. (REY WASHINGTON APRN) Review of Systems: Review of Systems: Constitutional: See HPI Respiratory: See HPI Cardiovascular: See HPI GI: See HPI Neurologic: See HPI Psychiatric: See HPI (REY WASHINGTON APRN) Heart Score: C/O Chest Pain: Yes HEART Score for Chest Pain: HEART Score for Chest Pain Response (Comments) Value History Slighlty/Non-Suspicious 0 ECG Normal 0 Age < 45 0 Risk Factors No Risk Factors 0 Total 0 Risk Factors: Risk Factors: DM, Current or recent (<one month) smoker, HTN, HLP, family history of CAD, obesity. Risk Scores: Score 0 - 3: 2.5% MACE over next 6 weeks - Discharge Home Score 4 - 6: 20.3% MACE over next 6 weeks - Admit for Clinical Observation Score 7 - 10: 72.7% MACE over next 6 weeks - Early Invasive Strategies (REY WASHINGTON APRN) Allergies: Allergies: Allergies Coded Allergies Type Severity Reaction Last Updated Verified No Known Drug Allergies 01/05/15 No (REY WASHINGTON APRN) Physical Exam: PE: Constitutional: Well developed, well nourished, no acute distress, non-toxic appearance. [] HENT: Normocephalic, atraumatic, bilateral external ears normal, oropharynx moist, no oral exudates, nose normal. [] Eyes: PERRL, EOMI, conjunctiva normal, no discharge. [] Neck: Normal range of motion, no stridor Cardiovascular:Heart rate regular rhythm, no murmur [] Lungs & Thorax: Bilateral breath sounds clear to auscultation [] Abdomen: Bowel sounds normal, soft, no tenderness, no masses, no pulsatile masses. [] Skin: Warm, dry, no erythema, no rash. [] Back: N normal range of motion Extremities: No tenderness, no cyanosis, no clubbing, ROM intact, no edema. [] Neurologic: Alert and oriented X 3, normal motor function, normal sensory function, no focal deficits noted. [] Psychologic: Affect normal, judgement normal, mood normal. [] (REY WASHINGTON APRN) EKG: EKG: [] (REY WASHINGTON APRN) Radiology/Procedures: Radiology/Procedures: [] (REY WASHINGTON APRN) Course & Med Decision Making: Course & Med Decision Making Pertinent Labs and Imaging studies reviewed. (See chart for details) Patient presents to the emergency department today for chest pain. Patient states that this chest pain feels like the chest pain that he experiences when he has his panic attacks. Patient has been seen and evaluated multiple times in this emergency department for anxiety related chest pain. Patient positive for COVID-19 15 days ago. Work-up in the ER consisted of blood work, EKG and chest x-ray. I discussed patients case with supervising physician and he will assume patient care at this time due to shift change. (REY WASHINGTON APRN) Course & Med Decision Making I assumed care from the preceding practitioner at the end of her shift at 0100. In brief, this is a 35-year-old male with a history of anxiety and chronic chest pain (he states that he has chest pain several days out of every week and has for years). Today the pain seemed a little worse than usual so he elected emergency department evaluation. It is located midsternally and he tells me that it radiates to his neck and did not radiate to his back, contrary to what he told the practitioner initially. It is very mild now, almost barely present, but was more severe earlier. Started about an hour prior to arrival. Is pleuritic and nonexertional. Otherwise no focal or specific symptoms and patient specifically denies fevers, nausea or vomiting, upper respiratory congestion/rhinorrhea, cough, sore throat, shortness of breath, abdominal pain, flank pain, back pain, dysuria, hematuria, polyuria or oliguria, changes in bowel habits, pain or swelling in the legs. Patient did test positive for Covid about 2 weeks ago but is currently symptom- free. Labs and imaging are as noted, remarkable only for positive D-dimer with confirmatory CT angiography of the chest unremarkable for any evidence of PE or other acute process. On serial reassessments patient is resting very comfortably. HEART score 1 for chewing tobacco use. Delta troponin negative. Chest pain resolved on reassessment for disposition. In view of clinical improvement, reassuring work-up and chronic problem in this relatively low risk patient, will discharge home and have the patient follow-up closely with primary care and will also direct him to the cardiology office for close follow-up. He understands that if he feels worse instead of better or develops other new symptoms of concern that he will need to return to the emergency department immediately for reevaluation. All questions were answered (MANUEL KENYON MD) Dragon Disclaimer: Dragon Disclaimer: This electronic medical record was generated, in whole or in part, using a voice recognition dictation system. (REY WASHINGTON APRN) Departure Departure Impression: Primary Impression: Nonspecific chest pain Disposition: HOME / SELF CARE / HOMELESS Condition: GOOD Referrals: NANO GILBERT MD Patient Instructions: Chest Pain (Nonspecific) Additional Instructions: Follow-up very closely with your primary care doctor in the office in the next 2 to 4 days for a reevaluation of your symptoms and discussion of next best steps in care. I would also like you to make an appointment to see Dr. Gilbert of cardiology (one of our heart doctors) in the office, ideally within the next 2 to 4 days as well. Please call on Friday to make an appointment to be seen. Drink plenty of fluids and get plenty of rest. You may take ibuprofen as needed for discomfort. Return to the emergency department right away for worsening symptoms of any kind or with any other new symptoms of concern. REY WASHINGTON APRN Jul 14, 2021 00:45 MANUEL KENYON MD Jul 14, 2021 04:00
[2021-07-14 01:08] LABS: BASO # 0.1 x10^3/uL (0.0-0.2); BASO % 1 % (0-3); EOS # 0.1 x10^3/uL (0.0-0.7); EOS % 2 % (0-3); HEMOGLOBIN 14.7 g/dL (13.0-17.5); LYMPH # 2.1 x10^3/uL (1.0-4.8); LYMPH % 33 % (24-48); MEAN CORPUSCULAR HEMOGLOBIN 32 pg (25-35); MEAN CORPUSCULAR HGB CONC 36 g/dL (31-37); MEAN CORPUSCULAR VOLUME 90 fL (79-100); MONO # 0.7 x10^3/uL (0.0-1.1); MONO % 12 % (0-9); NEUT # 3.4 x10^3/uL (1.8-7.7); NEUT % 53 % (31-73); PLATELET COUNT 234 x10^3/uL (140-400); RED BLOOD COUNT 4.56 x10^6/uL (4.30-5.70); RED CELL DISTRIBUTION WIDTH 13.3 % (11.5-14.5); WHITE BLOOD COUNT 6.3 x10^3/uL (4.0-11.0)
[2021-07-14 01:17] LABS: CALCIUM 8.4 mg/dL (8.5-10.1); CREATININE 0.9 mg/dL (0.7-1.3); POTASSIUM 3.8 mmol/L (3.5-5.1)
[2021-07-14 01:23] LABS: ALBUMIN 3.5 g/dL (3.4-5.0); ALBUMIN/GLOBULIN RATIO 1.1 (1.0-1.7); TOTAL BILIRUBIN 0.4 mg/dL (0.2-1.0); TOTAL PROTEIN 6.8 g/dL (6.4-8.2)
[2021-07-14] MEDS ORDERED: IOHEXOL 350 MG/ML 100 ML VIAL. IV ONE (02:15)
--- NOTE | 2021-07-14 02:43 | RAD ---
EXAM: XR CHEST 1V 07/14/2021 12:43 AM CLINICAL INDICATION: Chest pain COMPARISON: Chest radiograph 02/12/2019 TECHNIQUE: AP upright view of the chest FINDINGS: The heart and mediastinum are normal. Lungs are well-expanded and clear. No consolidatio n, pleural effusion, or pneumothorax. Pulmonary vascularity is normal. The thoracic skeleton is int act. IMPRESSION: Normal chest radiograph. Electronically signed by: Clarisa Walker MD (07/14/2021 2:41 AM) [facility]
[2021-07-14] MEDS ORDERED: CONTRAST GIVEN. MC PRN (02:45)
--- NOTE | 2021-07-14 03:16 | RAD ---
Study: CT CHEST WITH CONTRAST - PULMONARY ANGIOGRAM History: Chest pain, elevated d-dimer, recent COVID Comparison: Chest radiograph 07/14/2021 Technique: Helical CT of the chest performed after the administration of 100 mL Omnipaque 350 intrav enous contrast and timed for angiographic evaluation of the pulmonary arteries per PE protocol. Coron al and sagittal 3D MIP reformations were obtained. One or more of the following individualized dose reduction techniques were utilized for this examinat ion: 1. Automated exposure control 2. Adjustment of the mA and/or kV according to patient size 3. Use of iterative reconstruction technique. Findings: Pulmonary Arteries: Contrast bolus is adequate. There is no acute pulmonary embolism. Heart/Systemic Vasculature: Heart is normal in size. No pericardial effusion. Thoracic aorta is radha l in caliber. There is contrast bolus was not adequate to evaluate for aortic dissection. Mediastinum: No lymphadenopathy. Lungs: The lungs are clear. No pleural effusion or pneumothorax. Neck/Axilla/Body Wall: No axillary lymphadenopathy. Upper Abdomen: Upper abdomen is unremarkable. Bones: No acute osseous abnormalities. IMPRESSION: No acute pulmonary embolism or other acute abnormality. Electronically signed by: Clarisa Walker MD (07/14/2021 3:14 AM) CANDENORMA
--- NOTE | 2021-07-14 03:43 | EKG ---
[facility] [address] [place] [address] Test Date: 2021-07-14 Test Time: 00:36:22 Pat Name: MIKA SANDHU Department: Room: Gender: M Miller First: : 1985 Requested By: REY WASHINGTON Order Number: [id number] Reading MD: Jameel Ricci MD Measurements Intervals [place] Rate: 82 P: RI: QRS: 75 QRSD: 96 T: 50 QT: 322 QTc: 379 Interpretive Statements SR NON-SPECIFIC ST/T CHANGES Electronically Signed On 07-15-2021 20:40:09 SENIOR PRODUCT ANALYST by Jameel Ricci MD
--- NOTE | 2021-07-14 03:44 | EKG ---
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
[2021-07-14 04:16] VITALS: BP 110/67
== END 2021-07-14 04:20 | disposition home or self-care (01) ==
LOC: ER 00:23
DX: R07.2 Precordial pain (principal); R42 Dizziness and giddiness; F41.0 Panic disorder [episodic paroxysmal anxiety]
CPT/HCPCS: 36415; 71045; 71275; 80053; 84484; 85025; 85379; 93005; 99285; Q9967